=== PATIENT | female | born 1955 | race Caucasian/White ===

== ENCOUNTER → 2019-10-25 | Outpatient (CLI) | payer MEDICARE, MEDICAID ==
[2019-10-25 15:25] LABS: EOSINOPHILS % (AUTO) 0.1 % (1.0-6.0); HEMATOCRIT 40.5 % (36-46); HEMOGLOBIN 13.4 g/dL (12.0-16.0); LYMPHOCYTES # (AUTO) 2.3 K/uL (1.0-4.8); LYMPHOCYTES % (AUTO) 28.7 % (22.0-44.0); MEAN CORPUSCULAR HEMOGLOBIN 32.4 pg (26.0-34.0); MEAN CORPUSCULAR VOLUME 98 fL (80-100); MONOCYTES # (AUTO) 0.6 K/uL (0.1-1.0); NEUTROPHILS % (AUTO) 62.2 % (40.0-70.0); PLATELET COUNT (AUTO) 334 K/uL (150-450); RED BLOOD CELL COUNT(AUTO) 4.13 MIL/uL (4.00-5.20); RED CELL DISTRIBUTION WIDTH 14.9 % (11.5-14.5)
[2019-10-25 15:34] LABS: HEMOGLOBIN A1C 4.9 % (4.5-6.2)
[2019-10-26 08:51] LABS: SODIUM SERUM 135 mmol/L (136-145)
[2019-10-26 08:52] LABS: ANION GAP 4 mmol/L (8-16); CARBON DIOXIDE 27 mmol/L (22-29); CHLORIDE 104 mmol/L (98-107); CREATININE 0.83 mg/dL (0.60-1.30); GLOMERULAR FILTR. RATE CALC > 60 mL/min (>60); GLUCOSE,RANDOM 98 mg/dL (70-110); POTASSIUM 2.4 mmol/L (3.5-5.1); UREA NITROGEN, BLOOD 8 mg/dL (7-18)
[2019-10-26 08:53] LABS: ALANINE AMINOTRANSFERASE 14 U/L (12-78); ALBUMIN 3.8 g/dL (3.4-5.0); ALKALINE PHOSPHATASE 63 U/L (46-116); ASPARTATE AMINOTRANSFERASE 8 U/L (15-37); BILIRUBIN,TOTAL 0.4 mg/dL (0.1-1.0); CALCIUM, TOTAL 8.8 mg/dL (8.8-10.5); CHOL/HDL RATIO 2.6 (3.9-5.7); CHOLESTEROL 177 mg/dL (131-200); HDL CHOLESTEROL 67 mg/dL (40-60); LDL CHOL (CALC.) 71 mg/dL (0-130); THYROID STIMULATING HORMONE 3.39 uIU/mL (0.36-3.74); TOTAL PROTEIN, SERUM 7.3 g/dL (6.4-8.2); TRIGLYCERIDES 196 mg/dL (15-150)
== END | disposition home or self-care (01) ==
LOC: LABPV 14:47
PROVIDERS: ATTEND Internal Medicine Cardiovascular Disease
DX: E55.9 Vitamin D deficiency, unspecified (principal); I10 Essential (primary) hypertension; E11.8 Type 2 diabetes mellitus with unspecified complications; D56.5 Hemoglobin E-beta thalassemia; I50.9 Heart failure, unspecified
CPT/HCPCS: 82306; 83036; 83735; 84436; 84443; 84481

== ENCOUNTER 2020-11-23 15:00 | Emergency (ER) | payer MEDICARE, OTHER ==
[~2020-11-23] VITALS: Ht 149.9 cm; Wt 40.9 kg
[2020-11-23] MEDS ORDERED: HYDROCODONE/ACETAMINOPHEN 5-325 MG TABLET PO ONE (17:30)
[2020-11-23 19:30] VITALS: BP 150/72
[2020-11-23 19:38] LABS: BASOPHILS % (AUTO) 0.4 % (0.0-2.0); EOSINOPHILS % (AUTO) 0 % (1.0-6.0); HEMATOCRIT 41.6 % (36-46); LYMPHOCYTES # (AUTO) 2.3 K/uL (1.0-4.8); LYMPHOCYTES % (AUTO) 23.1 % (22.0-44.0); MEAN CORPUSCULAR HGB CONC 33.6 G/dL (31.0-37.0); MEAN CORPUSCULAR VOLUME 95 fL (80-100); MONOCYTES # (AUTO) 0.6 K/uL (0.1-1.0); MONOCYTES % (AUTO) 6.7 % (2.0-9.0); NEUTROPHILS # (AUTO) 6.8 K/uL (1.8-7.7); NEUTROPHILS % (AUTO) 69.8 % (40.0-70.0); PLATELET COUNT (AUTO) 359 K/uL (150-450); RED BLOOD CELL COUNT(AUTO) 4.37 MIL/uL (4.00-5.20); RED CELL DISTRIBUTION WIDTH 14.6 % (11.5-14.5)
[2020-11-23 20:01] LABS: B-TYPE NATRIURETIC PEPTIDE 457 pg/mL (0-100)
[2020-11-23 20:15] LABS: ALANINE AMINOTRANSFERASE 18 U/L (12-78); ALBUMIN 3.9 g/dL (3.4-5.0); ALKALINE PHOSPHATASE 148 U/L (46-116); ANION GAP 12 mmol/L (8-16); ASPARTATE AMINOTRANSFERASE 17 U/L (15-37); BILIRUBIN,TOTAL 0.4 mg/dL (0.1-1.0); CARBON DIOXIDE 30 mmol/L (22-29); CHLORIDE 104 mmol/L (98-107); CREATINE KINASE, TOTAL ONLY 163 U/L (26-192); CREATININE 0.81 mg/dL (0.60-1.30); GLOMERULAR FILTR. RATE CALC > 60 mL/min (>60); GLUCOSE,RANDOM 96 mg/dL (70-110); SODIUM SERUM 146 mmol/L (136-145); TOTAL PROTEIN, SERUM 7.9 g/dL (6.4-8.2); UREA NITROGEN, BLOOD 7 mg/dL (7-18)
[2020-11-23 20:18] LABS: POTASSIUM 2.4 mmol/L (3.5-5.1)
== END 2020-11-23 20:30 | disposition left against medical advice (07) ==
LOC: EMS 15:00
DX: S42.302A Unspecified fracture of shaft of humerus, left arm, initial encounter for closed fracture (principal); E78.00 Pure hypercholesterolemia, unspecified; I10 Essential (primary) hypertension; W05.0XXA Fall from non-moving wheelchair, initial encounter; Y93.89 Activity, other specified; Y92.89 Other specified places as the place of occurrence of the external cause; Y99.8 Other external cause status
CPT/HCPCS: 93005; 99285; 71045-TC

== ENCOUNTER 2021-11-06 16:47 | Inpatient (IN) | payer MEDICARE, MEDICAID ==
[~2021-11-06] VITALS: Ht 152.4 cm; Wt 47.7 kg
[~2021-11-06 16:47] MED LIST: ASPI81TA87 PO; CARB100 PO; CARB200T6 PO; COMPLEX PO; ISOS60TA77 PO; METO25TA3 PO; NITR0.4T52 SL; OXYC-490 PO; PRIM250T3 PO; RANO500T3 PO; SIMV-43 PO; [UNRECOGNIZED DRUG - CODE] PO
[2021-11-06 20:05] LABS: EOSINOPHILS % (AUTO) 0 % (1.0-6.0); HEMATOCRIT 45.2 % (36-46); HEMOGLOBIN 15.5 g/dL (12.0-16.0); LYMPHOCYTES # (AUTO) 2.6 K/uL (1.0-4.8); LYMPHOCYTES % (AUTO) 28.8 % (22.0-44.0); MEAN CORPUSCULAR HEMOGLOBIN 32.4 pg (26.0-34.0); MEAN CORPUSCULAR HGB CONC 34.2 G/dL (31.0-37.0); MEAN CORPUSCULAR VOLUME 95 fL (80-100); MONOCYTES # (AUTO) 0.7 K/uL (0.1-1.0); MONOCYTES % (AUTO) 7.3 % (2.0-9.0); NEUTROPHILS # (AUTO) 5.7 K/uL (1.8-7.7); NEUTROPHILS % (AUTO) 62.9 % (40.0-70.0); PLATELET COUNT (AUTO) 375 K/uL (150-450); RED BLOOD CELL COUNT(AUTO) 4.77 MIL/uL (4.00-5.20); RED CELL DISTRIBUTION WIDTH 13.9 % (11.5-14.5)
[2021-11-06 20:16] LABS: ANION GAP 9 mmol/L (8-16); CALCIUM, TOTAL 9.5 mg/dL (8.8-10.5); CARBON DIOXIDE 27 mmol/L (22-29); CHLORIDE 105 mmol/L (98-107); CREATININE 0.65 mg/dL (0.60-1.30); GLOMERULAR FILTR. RATE CALC > 60 mL/min (>60); GLUCOSE,RANDOM 105 mg/dL (70-110); POTASSIUM 3.8 mmol/L (3.5-5.1); SODIUM SERUM 141 mmol/L (136-145); UREA NITROGEN, BLOOD 16 mg/dL (7-18)
[2021-11-06 20:32] LABS: ALANINE AMINOTRANSFERASE 21 U/L (12-78); ALBUMIN 3.7 g/dL (3.4-5.0); ALKALINE PHOSPHATASE 95 U/L (46-116); ASPARTATE AMINOTRANSFERASE 15 U/L (15-37); BILIRUBIN,TOTAL 0.4 mg/dL (0.1-1.0); FREE T4 (FREE THYROXINE) 0.84 ng/dL (0.76-1.46); THYROID STIMULATING HORMONE 1.03 uIU/mL (0.36-3.74); TOTAL PROTEIN, SERUM 7.5 g/dL (6.4-8.2)
[2021-11-06 21:57] LABS: COVID AG,FIA SOURCE NASOPHARYNGEAL
[2021-11-06] MEDS ORDERED: HALOPERIDOL 5 MG TABLET PO PRN (22:00)
[2021-11-06] MEDS ORDERED: LORazepam 2 MG TABLET PO PRN (22:00)
[2021-11-06 23:58] LABS: APPEARANCE,URINE CLEAR (CLEAR); BILIRUBIN,URINE NEGATIVE (NEGATIVE); GLUCOSE, URINE (UA) NEGATIVE (NEGATIVE); KETONES,URINE 15 mg/dL (NEGATIVE); LEUKOCYTE ESTERASE ,URINE SMALL (NEGATIVE); NITRATE,URINE NEGATIVE (NEGATIVE); OCCULT BLOOD,URINE NEGATIVE (NEGATIVE); PROTEIN,URINE POS 1+ (NEGATIVE); UROBILINOGEN,URINE 0.2 mg/dL (<=1.0)
[2021-11-07 00:03] LABS: AMPHET/METH SCREEN,URINE NEGATIVE (NEGATIVE); BARBITURATE SCREEN, URINE POSITIVE (NEGATIVE); BENZODIAZEPINES SCREEN,URINE NEGATIVE (NEGATIVE); CANNABINOID SCREEN,URINE NEGATIVE (NEGATIVE); COCAINE SCREEN,URINE NEGATIVE (NEGATIVE); METHADONE SCREEN, URINE NEGATIVE (NEGATIVE); OPIATE SCREEN,URINE NEGATIVE (NEGATIVE)
[2021-11-07 00:06] LABS: PHENCYCLIDINE SCREEN,URINE NEGATIVE (NEGATIVE)
[2021-11-07 00:35] LABS: BACTERIA,URINE Moderate /HPF (None Seen); RBC,URINE 0-2 /HPF (0-2)
[2021-11-07 00:36] LABS: CALCIUM OXALATE CRYSTALS,UR Few /LPF (None Seen)
[2021-11-07] MEDS ORDERED: OxyCODONE HCL/ACETAMINOPHEN 5-325 MG TABLET PO ONE (00:45)
[2021-11-07] MEDS ORDERED: CEPHALEXIN MONOHYDRATE 500 MG CAPSULE PO ONE (00:45)
[2021-11-07] MEDS: ZOLPIDEM TARTRATE 10 MG TABLET PO PRN (02:32)
[2021-11-07 03:32] LABS: CHOL/HDL RATIO 5.1 (3.9-5.7); CHOLESTEROL 229 mg/dL (131-200); HDL CHOLESTEROL 45 mg/dL (40-60); LDL CHOL (CALC.) 144 mg/dL (0-130); TRIGLYCERIDES 201 mg/dL (15-150)
[2021-11-07] MEDS ORDERED: CarBAMazepine 200 MG TABLET PO ONE (04:15)
[2021-11-07] MEDS ORDERED: DOCUSATE SODIUM 100 MG CAPSULE PO PRN (13:15)
[2021-11-07] MEDS ORDERED: PETROLATUM,WHITE 28 GM JELLY TP PRN (13:15)
[2021-11-07] MEDS ORDERED: GuaiFENesin/D-METHORPHAN [SUGAR-FREE] 200-20MG/10 ML SYRUP UDCUP PO PRN (13:15)
[2021-11-07] MEDS ORDERED: CloNIDine HCL 0.1 MG TABLET PO PRN (13:15)
[2021-11-07] MEDS ORDERED: NICOTINE 14 MG/24 HOUR PATCH TD PRN (13:15)
[2021-11-07] MEDS ORDERED: MAGNESIUM HYDROXIDE SUSPENSION 30 ML UDCUP PO PRN (13:15)
[2021-11-07] MEDS ORDERED: MAG HYDROX/AL HYDROX/SIMETH ES 30 ML SUSPENSION UDCUP PO PRN (13:15)
[2021-11-07] MEDS ORDERED: ONDANSETRON HCL 4 MG TABLET PO PRN (13:15)
[2021-11-07] MEDS ORDERED: LOPERAMIDE HCL 2 MG CAPSULE PO PRN (13:15)
[2021-11-07] MEDS ORDERED: ACETAMINOPHEN 325 MG TABLET PO PRN (13:15)
[2021-11-07] MEDS: CarBAMazepine 200 MG TABLET PO SCH (18:57)
[2021-11-07] MEDS: SIMVASTATIN 20 MG TABLET PO SCH (20:32)
[2021-11-07] MEDS: RANOLAZINE 500 MG ER TABLET PO SCH (20:33)
[2021-11-07] MEDS: ISOSORBIDE MONONITRATE 60 MG ER TABLET PO SCH ×2 (20:33→20:40)
[2021-11-08] MEDS: RANOLAZINE 500 MG ER TABLET PO SCH ×2 (09:40→21:00)
[2021-11-08] MEDS: ASPIRIN 81 MG DR TABLET PO SCH (09:40)
[2021-11-08] MEDS: ISOSORBIDE MONONITRATE 60 MG ER TABLET PO SCH ×2 (09:40→21:00)
[2021-11-08] MEDS: METOPROLOL SUCCINATE 25 MG ER TABLET PO SCH (12:30)
[2021-11-08] MEDS: CarBAMazepine 200 MG TABLET PO SCH ×2 (12:51→18:08)
[2021-11-08] MEDS: PRIMIDONE 250 MG TABLET PO SCH ×2 (12:51→18:08)
[2021-11-08] MEDS: OxyCODONE HCL/ACETAMINOPHEN 10-325 MG TABLET PO SCH (17:04)
[2021-11-08] MEDS: SIMVASTATIN 20 MG TABLET PO SCH (21:00)
[2021-11-09] MEDS: OxyCODONE HCL/ACETAMINOPHEN 10-325 MG TABLET PO SCH ×5 (06:44→23:50)
[2021-11-09] MEDS: ISOSORBIDE MONONITRATE 60 MG ER TABLET PO SCH ×2 (08:08→21:50)
[2021-11-09] MEDS: RANOLAZINE 500 MG ER TABLET PO SCH ×2 (08:09→21:50)
[2021-11-09] MEDS: ASPIRIN 81 MG DR TABLET PO SCH (08:09)
[2021-11-09] MEDS: CarBAMazepine 200 MG TABLET PO SCH ×2 (12:14→18:02)
[2021-11-09] MEDS: METOPROLOL SUCCINATE 25 MG ER TABLET PO SCH (12:14)
[2021-11-09] MEDS: PRIMIDONE 250 MG TABLET PO SCH ×2 (12:14→18:02)
[2021-11-09] MEDS: SIMVASTATIN 20 MG TABLET PO SCH (21:50)
[2021-11-10 00:04] VITALS: BP 129/71
[2021-11-10] MEDS: OxyCODONE HCL/ACETAMINOPHEN 10-325 MG TABLET PO SCH ×3 (05:56→17:03)
[2021-11-10] MEDS: RANOLAZINE 500 MG ER TABLET PO SCH (09:54)
[2021-11-10] MEDS: ASPIRIN 81 MG DR TABLET PO SCH (09:55)
[2021-11-10] MEDS: ISOSORBIDE MONONITRATE 60 MG ER TABLET PO SCH (09:55)
[2021-11-10] MEDS: METOPROLOL SUCCINATE 25 MG ER TABLET PO SCH (13:03)
[2021-11-10] MEDS: CarBAMazepine 200 MG TABLET PO SCH ×2 (13:03→21:19)
[2021-11-10] MEDS: PRIMIDONE 250 MG TABLET PO SCH ×2 (13:03→21:21)
[2021-11-10] MEDS: SIMVASTATIN 20 MG TABLET PO SCH (21:19)
[2021-11-11] MEDS: OxyCODONE HCL/ACETAMINOPHEN 10-325 MG TABLET PO SCH ×4 (00:52→17:42)
[2021-11-11 06:42] VITALS: BP 131/82
[2021-11-11] MEDS: ISOSORBIDE MONONITRATE 60 MG ER TABLET PO SCH ×3 (09:00→17:08)
[2021-11-11] MEDS: ASPIRIN 81 MG DR TABLET PO SCH (09:10)
[2021-11-11] MEDS: RANOLAZINE 500 MG ER TABLET PO SCH ×2 (09:11→17:08)
[2021-11-11 09:52] VITALS: BP 110/56
[2021-11-11] MEDS: PRIMIDONE 250 MG TABLET PO SCH ×2 (12:01→20:01)
[2021-11-11] MEDS: CarBAMazepine 200 MG TABLET PO SCH ×2 (12:04→20:01)
[2021-11-11] MEDS: METOPROLOL SUCCINATE 25 MG ER TABLET PO SCH (12:04)
[2021-11-11 16:43] VITALS: BP 128/73
[2021-11-11] MEDS: SIMVASTATIN 20 MG TABLET PO SCH (20:46)
[2021-11-12] VITALS: BP 108/56
[2021-11-12] MEDS: OxyCODONE HCL/ACETAMINOPHEN 10-325 MG TABLET PO SCH ×3 (00:39→12:28)
[2021-11-12] MEDS: ZOLPIDEM TARTRATE 10 MG TABLET PO PRN (02:08)
[2021-11-12 08:00] VITALS: BP 112/69
[2021-11-12] MEDS: ASPIRIN 81 MG DR TABLET PO SCH (08:13)
[2021-11-12] MEDS: RANOLAZINE 500 MG ER TABLET PO SCH (08:13)
[2021-11-12] MEDS: ISOSORBIDE MONONITRATE 60 MG ER TABLET PO SCH ×2 (08:13→08:28)
[2021-11-12] MEDS: PRIMIDONE 250 MG TABLET PO SCH (12:40)
[2021-11-12] MEDS: METOPROLOL SUCCINATE 25 MG ER TABLET PO SCH (12:40)
[2021-11-12] MEDS: CarBAMazepine 200 MG TABLET PO SCH (12:41)
[2021-11-12 13:51] LABS: COVID AG,FIA SOURCE NASAL SWAB
== END 2021-11-12 14:50 | disposition home or self-care (01) | DRG 885 ==
LOC: EMS 16:49 → AHU 21:49 → UNDOADMIN 21:49 → AHU 11-09 08:00 → 3EX 11-10 18:30
PROVIDERS: ADMIT Psychiatry & Neurology Psychiatry; ATTEND Psychiatry & Neurology Psychiatry
DX: F29 Unspecified psychosis not due to a substance or known physiological condition (principal); G89.29 Other chronic pain; G40.909 Epilepsy, unspecified, not intractable, without status epilepticus; F20.9 Schizophrenia, unspecified; J44.9 Chronic obstructive pulmonary disease, unspecified; K59.00 Constipation, unspecified; M81.0 Age-related osteoporosis without current pathological fracture; E78.00 Pure hypercholesterolemia, unspecified; I10 Essential (primary) hypertension; E78.5 Hyperlipidemia, unspecified; Z20.822 Contact with and (suspected) exposure to COVID-19; Z88.5 Allergy status to narcotic agent; Z88.6 Allergy status to analgesic agent; Z88.8 Allergy status to other drugs, medicaments and biological substances; Z91.81 History of falling
CPT/HCPCS: 80053; 80061; 81001; 84439; 84443; 85025; 87086; 99285; G0378; G0480